=== PATIENT | female | born 1985 | race Caucasian/White ===

== ENCOUNTER 2024-10-30 20:02 | Inpatient (IN) | payer BC, SELFPAY ==
[2024-10-30] VITALS (10 sets, daily range): BP systolic 116–180; BP diastolic 60–114; PULSE 85–110; TEMP 36.7; BMI 33.5
--- NOTE | 2024-10-30 20:25 | PD.LDHP ---
Documentation for date of: 10/30/24 OB Labor/Induct. HPI History of Present Illness History of present illness: H and P dictated. Meds Home Medications and Allergies Home Medications ?Medication ?Instructions ?Recorded ?Confirmed ?Type aspirin 81 mg tablet,delayed mg 10/30/24 History release enoxaparin 40 mg/0.4 mL mg 10/30/24 History subcutaneous syringe labetalol 100 mg tablet mg 10/30/24 History vitamin with calcium tab 10/30/24 History no.72-iron 27 mg-folic acid 1 mg tablet ( Plus (calcium carbonate)) Allergies Allergy/AdvReac Type Severity Reaction Status Date / Time No Known Drug Allergies Allergy Verified 10/30/24 21:03 OB Exam Physical Exam Vital signs: Pulse BP 102 H 162/97 H 10/30/24 20:11 10/30/24 20:11 OB Results Labs 10/30/24 20:15 10/30/24 20:15
[2024-10-30] MEDS: LABETALOL 100 MG TABLET 200 MG PO (21:25)
[2024-10-30] MEDS: DINOPROSTONE 10 MG VAG.SUPP VAGINAL (21:28)
[2024-10-30 21:43] LABS: Basophils % (Auto) 0 % (0-2.5); Eosinophils # (Auto) 0.1 Thou/mm3 (0.0-0.5); Eosinophils % (Auto) 1 % (0-10); Hematocrit 39.2 % (36.0-46.0); Hemoglobin 14.2 g/dL (12.0-16.0); Immature Granulocytes % (Auto) 0 % (0-0); Immature Granulocytes Auto 0.01 Thou/mm3 (0.00-0.00); Lymphocytes # (Auto) 2.1 Thou/mm3 (1.0-4.8); Lymphocytes % (Auto) 32 % (10-50); Mean Corpuscular HGB Conc 36.2 g/dl (31.0-37.0); Mean Corpuscular Hemoglobin 31.4 pg (25.0-35.0); Mean Corpuscular Volume 87 fL (80-100); Monocytes # (Auto) 0.5 Thou/mm3 (0.0-0.8); Monocytes % (Auto) 8 % (0-12); Neutrophils # (Auto) 3.8 Thou/mm3 (1.8-7.7); Neutrophils % (Auto) 58 % (37-80); Nucleated Red Blood Cell % 0 /100 WBC (0); Platelet Count 205 Thou/mm3 (140-440); RDW Standard Deviation 41.6 fL (36.4-46.3); Red Blood Count 4.52 Miln/mm3 (4.00-5.20); White Blood Count 6.5 Thou/mm3 (3.6-11.0)
[2024-10-30 22:14] LABS: Fibrinogen 383 mg/dL (175-375); INR 0.9 (0.9-1.3); Partial Thromboplastin Time 23.2 Seconds (22.0-36.0); Prothrombin Time 10.2 Seconds (9.0-12.2)
[2024-10-30 22:15] LABS: Albumin/Globulin Ratio 1.7 (1.2-2.2); Alkaline Phosphatase 130 U/L (46-116); Anion Gap 11 (7-16); Aspartate Amino Transferase 15 U/L (0-34); BUN/Creatinine Ratio 10 Ratio (12-20); Bilirubin,Total 0.5 mg/dL (0.3-1.2); Blood Urea Nitrogen 9 mg/dL (9-23); Carbon Dioxide 21.6 mMol/L (20.0-31.0); Chloride 106 mMol/L (98-107); Creatinine (Component) 0.9 mg/dL (0.6-1.3); Estimated Creatinine Clearance 104.9 mL/min (>60); Globulin 2.3 gm/dL (2.3-3.5); Glucose 96 mg/dL (74-106); LDH (Lactate Dehydrogenase) 200 U/L (120-246); Osmolality,Calculated 276 (275-295); Sodium 139 mMol/L (136-145); Total Protein 6.3 gm/dL (5.7-8.2); Uric Acid 4.7 mg/dL (3.1-7.8); eGFR > 60 See Note
[2024-10-30 22:18] LABS: Alanine Aminotransferase 10 U/L (10-49)
[2024-10-30] MEDS: RINGERS LACTATED 1000 ML 1,000 ML 100 ML IV (23:23)
[2024-10-31] VITALS (23 sets, daily range): BP systolic 109–174; BP diastolic 61–102; PULSE 70–110; RESP 16–18; TEMP 36.7–37.1
[2024-10-31 02:28] LABS: Collection Type, Urine Clean Catch
[2024-10-31 02:58] LABS: Bilirubin,Urine Negative (Negative); Blood,Urine 2+ (Negative); Clarity,Urine Clear (Clear/Hazy); Color,Urine Lt-Yellow (Lt Yel-Yel); Glucose, Urine Negative (Negative); Ketones,Urine Negative (Negative); Leukocyte Esterase,Urine Negative (Negative); Nitrite,Urine Negative (Negative); Protein,Urine Negative (Neg - Trace); RBC,Urine 2 /hpf (0-3); Specific Gravity,Urine 1.013 (1.001-1.035); Squamous Epithelial Cell,Urine 1 /hpf (0-5); Urobilinogen,Urine Negative mg/dL (0.0-1.0); WBC,Urine < 1 /hpf (0-5)
--- NOTE | 2024-10-31 07:13 | PD.LDPN ---
Documentation for date of: 10/31/24 OB Labor Progress Note Pain Control Comments: Denies any pain Pelvic Exam Dilation (cm): .5 Effacement (%): 0 station: -2 Amniotic membrane status: Intact Comments: Per RN exam Contractions Monitor mode: External Contraction frequency: None Contraction intensity: Mild Status status: Category l Assessment and Plan Comments: IUP 38wks Chronic HTN Macrosomia with EFW 3734g by MFM on 10/29 (prior 8'10 ) IVF pregancy Annexin A5 M2 Haplotype at risk for loss (Stopped Lovenox 10/29: WILLEM says no risk for VTE so she does not need to take ) Cervical ripening with Cervidil Continue Labetalol 200mg po bid PIH labs do not show preeclampsia.
[2024-10-31] MEDS: LABETALOL 100 MG TABLET 200 MG PO (09:07)
[2024-10-31] MEDS: MISOPROSTOL 50 mCg TABLET PO ×4 (11:16→23:57)
[2024-10-31] MEDS: LABETALOL 100 MG TABLET 400 MG PO (21:51)
--- NOTE | 2024-10-31 21:56 | PC.NURSE ---
Pt refusing to take 400mg of Labetalol pt only willing to take 200mg. 200mg of Labetalol given.
[2024-11-01] VITALS (20 sets, daily range): BP systolic 116–143; BP diastolic 62–95; PULSE 66–92; TEMP 36.6–36.7
[2024-11-01 00:49] LABS: Syphilis Nonreactive (Nonreactive)
[2024-11-01] MEDS: LABETALOL 100 MG TABLET 400 MG PO ×2 (08:30→23:08)
--- NOTE | 2024-11-01 08:52 | ESPR_ITS ---
Documentation for date of: 11/01/24 OB Labor Progress Note Pelvic Exam Dilation (cm): 1 Effacement (%): 50 station: -2 Amniotic membrane status: Intact Contractions Monitor mode: External Contraction frequency: None Contraction intensity: Mild Status status: Category l Assessment and Plan Comments: Taken over care from overnight on-call physician. Patient is induction of labor history of IVF . She is status post Cervidil and 1 round of misoprostol and a second round of misoprostol was started earlier this morning. Cervical exam is still 50 and - 3. Category 1 tracing. Continue current plan
[2024-11-01] MEDS: MISOPROSTOL 50 mCg TABLET PO ×3 (11:20→19:48)
[2024-11-02] VITALS (259 sets, daily range): BP systolic 113–173; BP diastolic 62–98; PULSE 59–117; RESP 18; TEMP 36.6–37.2; O2SAT 81–100
[2024-11-02] MEDS: MISOPROSTOL 50 mCg TABLET PO (00:08)
[2024-11-02] MEDS: RINGERS LACTATED 1000 ML 1,000 ML 100 ML IV ×4 (04:53→16:07)
[2024-11-02] MEDS: OXYTOCIN in NS 30 units 30 UNIT/500 ML BAG IV (05:21)
--- NOTE | 2024-11-02 07:34 | ESHP_ITS ---
RE: CAPRI KHAN : 1985 DATE OF ADMISSION: 10/30/2024 HISTORY OF PRESENT ILLNESS: This is a 38-year-old 2, para 1-0-0-1 with due date of 11/12 with intrauterine at 38 weeks and 2 days who presents to labor and delivery for induction of labor for chronic hypertension for which the patient takes labetalol 100 mg p.o. b.i.d. 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 The patient conceived by assisted reproductive technology. She underwent a embryo transfer on 02/25 with embryo age on day of transfer 6 days. The patient has been on Lovenox 40 mg subcutaneous daily and aspirin 81 mg daily per the recommendation of her WILLEM, Dr. Lim in [place]. She has had a recent evaluation to rule out preeclampsia for elevated blood pressures on 10/27. Her 24-hour urine collection showed 166 mg over 24 hours with normal PIH labs. Her most recent ultrasound with maternal medicine on 10/29 showed a right hydronephrosis of 8 mm with no other structural abnormalities noted. The patient reports occasional contractions. She denies any leaking or bleeding. She reports normal movement. ALLERGIES: NO KNOWN DRUG ALLERGIES. MEDICATIONS: 1. Labetalol 100 mg one p.o. b.i.d. 2. Lovenox 40 mg subcutaneous once a day, discontinued on 10/29. 3. Aspirin 81 mg one p.o. daily. PAST MEDICAL HISTORY: Chronic hypertension, advanced maternal age, IVF , Rh negative, BMI 33. FAMILY HISTORY: Hypertension. SOCIAL HISTORY: The patient denies any alcohol, drug use, or smoking. 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 OBSTETRIC HISTORY: 2018 , 40-week normal vaginal delivery, 8 pound 10 ounce female. Intrauterine insemination, epidural. REVIEW OF SYSTEMS: She denies any chest pain, palpitations, cough, fever, shortness of breath, or lower extremity pain. She denies any headache, change in vision, or right upper quadrant pain. PHYSICAL EXAMINATION: Vital Signs: Blood pressure is 147/90 mmHg, heart rate 88, respirations 18, temperature 98.6, weight 219 pounds. HEENT: Oropharynx and sclerae are clear. LUNGS: Clear to auscultation bilaterally. HEART: Regular rate and rhythm. ABDOMEN: Gravid, consistent with estimated weight 8 pounds 4 ounces. EXTREMITIES: Nontender. SKIN: No gross rashes or lesions. NEUROLOGIC: No focal deficits. ASSESSMENT AND PLAN: Intrauterine at 38 weeks and 2 days, chronic hypertension, IVF , ANXA5 M2 haplotype heterozygous increases risk for loss, macrosomia, pyelectasis, induction of labor, anticipate spontaneous vaginal delivery. Informed consent was obtained. The patient has been aware of the risks, complications, alternatives, and benefits of the proposed procedure and she agrees. She is aware of the risk of operative vaginal delivery and delivery and agrees with these modes of delivery if indicated. WILLEM indicates that the patient is not at risk for VTE based on the M2 gene mutation and therefore she does not need Lovenox or aspirin . DT: 08:45:10 TT: 09:27:00 Ref: [id number] - TID: [id number] [facility]
--- NOTE | 2024-11-02 07:58 | PD.LDPN ---
Documentation for date of: 11/02/24 OB Labor Progress Note Pain Control Pain control: tolerating well Comments: Patient is a 38-year-old she [id number] IVF patient admitted for induction of labor secondary to IVF and chronic hypertension. She states she was on labetalol 100 twice daily at home. She has already had Cervidil and Cytotec x 3. She has been here since Friday night. It is now Friday morning. Today on exam , the patient is 2 to 3 cm 70% -2 I AROMed her bag of water at 7:30 in the morning clear fluid was noted. IUPC was inserted. We will continue Pitocin augmentation. As of right now she is on 2 milliunits of Pitocin. The father of the baby is at bedside. Patient does desire epidural. She was on Lovenox until about 5 days ago. Pelvic Exam Dilation (cm): 2-3 Effacement (%): 70 station: -2 Amniotic membrane status: Intact Comments: AROM at 0730 clear fluid Contractions Monitor mode: Internal Contraction frequency: irregular Contraction intensity: Mild Status status: Category l Assessment and Plan Assessment: induction ongoing Plan OB labor note: continuous present management Comments: Continue to go up on Pitocin 2 milliunits every 30 minutes
[2024-11-02] MEDS: LABETALOL 100 MG TABLET 400 MG PO ×2 (11:15→22:42)
--- NOTE | 2024-11-02 23:15 | PD.LDPN ---
Documentation for date of: 11/02/24 OB Labor Progress Note Pain Control Pain control: epidural Comments: Patient states her epidural is one-sided Pelvic Exam Dilation (cm): 4 Effacement (%): 70 station: -2 Amniotic membrane status: Ruptured Comments: Patient was on 15 milliunits/min of Pitocin Contractions Monitor mode: Internal Contraction frequency: 2-3 Contraction intensity: Moderate Status status: Category l Assessment and Plan Pitocin rate (mU/min): 15 Assessment: induction ongoing Plan OB labor note: Comments: Patient declines any more labor. She has made very little cervical change by my exam over the last 4 hours. She has a history of vaginal delivery x one 7 years ago. She is consented for primary low-transverse section The patient understands the risk of including the risk of bleeding, infection, blood transfusion, damage to bowel, bladder, blood vessels, other organs. She understands the risk of prolonged hospital stay should any the above occur. All questions were answered all consents were signed.
[2024-11-02] MEDS: FAMOTIDINE INJ 10 MG/ML VIAL 2 ML 20 MG IV (23:30)
[2024-11-02] MEDS: CITRIC ACID/SODIUM CITR 15 ML UDC (BICITRA) 30 ML PO (23:30)
[2024-11-02] MEDS: ceFAZolin/D5W 2 GM IV 2 GM/100 ML BAG IV (23:30)
[2024-11-03] VITALS (22 sets, daily range): BP systolic 110–154; BP diastolic 66–90; PULSE 77–103; RESP 1–20; TEMP 36.6–37.7; O2SAT 96–100
--- NOTE | 2024-11-03 01:03 | PD.LDDELS ---
Data (Ríos) Data Hx Section: No Reason for Primary Section: Arrest of dilation : 8 Para: 1 Term: 1 Livin Abortions: Spontaneous & Theraputic: 6 Delivery Data (Ríos) Labor Data Initiation of labor: Induction Induction/Augmentation Agent: Cytotec-PO, Cervidil, Pitocin and Artificial ROM ROM date: 11/02/24 ROM time: 07:40 Amniotic membrane rupture type: Artificial Amniotic fluid description: Clear Delivery Data EDC: 11/12/24 Onset of labor date: 11/02/24 Onset of labor time: 16:00 [place] delivery date: 11/03/24 [place] delivery time: 00:08 Gestational age (weeks): 38 Gestational age (days): 4 Placenta delivery date: 11/03/24 Placenta delivery time: 00:09 Delivered by: Tyra Adkins ([facility]) Delivery nurse: flex Multani nurse: sadie Mold Forms Builder at delivery: No Support person(s) at delivery: FOB at bedside Delivery Method Delivery method: Low Transverse Presentation: Vertex position: OA Anesthesia Type Anesthesia Type: Epidural Placenta Placenta delivery description: Manual Removal Cord blood sent to lab: Yes cord blood collection: Cord Blood Type Episiotomy Episiotomy description: None EBL Estimated blood loss (ml): 500 Umbilical Cord cord description: 3 Vessels Additional Procedures See op report for details Complications Complications: None [place] Data (Ríos) [place] Data order: 1 [place]'s gender: Female Identification band number: [id number] weight (gms): 3140 g Weight (pounds): 6 lbs and 14.8 ozs [place] length: 49.53 cm 1 minute: 9 5 minutes: 9
--- NOTE | 2024-11-03 01:09 | ESOP_ITS ---
Operative Note - EQUIPMENT CLEANER Procedure Date of procedure: 11/03/24 Procedure Performed: Primary low-transverse section Indication: The patient is a 38-year-old -0-6-1 history of multiple miscarriages in the past. She had 1 vaginal delivery 7 years prior. This was an IVF . care is up-to-date in the chart with Dr Diaz. She was admitted a couple of days ago for an induction of labor secondary to chronic hypertension and IVF. I took over care 11/02/2024 at 7 in the morning. The patient was 2 cm dilated. I AROMed the patient and placed an intrauterine pressure catheter. The patient had Pitocin augmentation begun. Despite adequate uterine contractions, the patient failed to make progress from 3 to 4 cm for about 5 hours. She declined further attempts at labor. As she was not progressing and declining further augmentation she was consented for a primary low-transverse section. Pre-Op diagnosis: 1. Intrauterine at 38-4/7 weeks 2. IVF 3. AMA 4. Chronic hypertension on labetalol 5. Maternal BMI 34 6. Arrest of dilation Post-Op diagnosis: Same Anesthesia type: Epidural Procedure description: After obtaining informed consent, the patient was brought back to the operating room and her epidural was bolused to obtain excellent anesthesia. She was then prepped and draped in the dorsal supine position with a leftward tilt in a normal sterile fashion. A Bear catheter had been inserted to the patient's bladder. A Pfannenstiel skin incision was made with the scalpel and carried down to the underlying fascia. The fascia was incised in the midline and the fascial incision extended laterally using Campos scissors. The superior aspect of the fascia was grasped with Adriel clamps and the underlying rectus muscles dissected off using blunt and sharp dissection. This was repeated in the inferior aspect of the incision. The rectus muscles were the midline and the peritoneum was picked up and entered sharply with Metzenbaums. This was extended superiorly and inferiorly with good visualization of the bladder. The bladder blade was inserted and the uterus was incised in low transverse fashion using a scalpel above the bladder reflection. The uterine incision was extended laterally using blunt dissection with the surgeon's fingers. The bag of henning was ruptured, and clear fluid was noted. The bladder blade was removed and the was delivered atraumatically in a vertex presentation. The cord was clamped cut, and the was handed off the waiting pediatric staff. Cord blood was sent. Cord gases were held. The placenta was then manually removed, and the uterus was exteriorized and cleared of all clots and debris. The uterine incision was repaired using 0 Monocryl in a running locked fashion. Excellent hemostasis was noted. The uterus was returned to the patient's abdominal cavity and copious irrigation carried out with warm normal saline. The uterine incision was reexamined and noted to be hemostatic. After ensuring the rectus muscles were hemostatic, these were reapproximated in the midline using a running suture of 0 Monocryl. The fascia was closed with 0 Vicryl in a running fashion. The subcutaneous tissues were irrigated and found to be hemostatic. These were reapproximated using a running suture of 3-0 plain. The skin was closed with a subcuticular suture of 4-0 Monocryl. The patient tolerated the procedure well. Sponge, lap, instrument, and needle counts were correct x 2. The patient went to the recovery area awake and in stable condition. Pathology was none. Fluids: crystalloid Fluid amount (mL): 800 Urine output (mL): 200 Specimen: none Implants: none Estimated blood loss (ml): 500 Findings: Liveborn female in the RICH presentation with a loose nuchal cord x 1 no meconium. Apgars were 9 and 9. Weight was 6 pounds 15 ounces. The placenta was complete spontaneous and grossly normal. Uterus was thick-walled otherwise grossly normal. Ovaries appeared flattened and small. Fallopian tubes were grossly normal. Complications: none Surgical staff psychologist Sherri Rubalcava CRNA Operation Date: 11/02/24 23:45 <No data on this case meets the specified criteria> Diagnosis Discharge Diagnosis (1) conceived through in vitro fertilization: Status: Acute (2) Chronic hypertension affecting : Status: Acute (3) Term delivered: Status: Acute Problem List Completed Was Problem List Reviewed/Reconciled?: Yes (1) conceived through in vitro fertilization Qualifiers: Trimester: third trimester Qualified Code(s): O09.813 - Supervision of resulting from assisted reproductive technology, third trimester
[2024-11-03] MEDS: OXYTOCIN in NS 20 units 20 UNIT/1,000 ML BAG 125 UNIT IV ×2 (01:51→10:12)
[2024-11-03 05:40] LABS: Anion Gap 12 (7-16); BUN/Creatinine Ratio 12 Ratio (12-20); Blood Urea Nitrogen 7 mg/dL (9-23); Calcium 8.9 mg/dL (8.3-10.6); Carbon Dioxide 20.6 mMol/L (20.0-31.0); Chloride 102 mMol/L (98-107); Creatinine (Component) 0.6 mg/dL (0.6-1.3); Estimated Creatinine Clearance 157.3 mL/min (>60); Glucose 98 mg/dL (74-106); Osmolality,Calculated 268 (275-295); Potassium 3.8 mMol/L (3.4-5.1); Sodium 135 mMol/L (136-145); eGFR > 60 See Note
[2024-11-03] MEDS: KETOROLAC INJ 30 MG/ML VIAL IVP ×4 (06:40→23:45)
[2024-11-03] MEDS: LABETALOL 100 MG TABLET 400 MG PO (09:18)
--- NOTE | 2024-11-03 19:57 | PD.LDPPPRG ---
Subjective Subjective Interval history: Patient is postop day 0 status post primary for arrest of dilatation at 4 cm. She is up out of bed sitting in a chair. Her 7-year-old daughter and her and the baby are at bedside. Patient is doing well. She had some elevated blood pressures prior to delivery. Exam Vital Signs Temp Pulse Resp BP Pulse Ox O2 Del Method 98.7 F 83 18 129/77 97 Room Air 11/03/24 19:20 11/03/24 19:20 11/03/24 19:20 11/03/24 19:20 11/03/24 19:20 11/03/24 19:20 Narrative Exam Patient is alert and oriented x 3 fundus is firm dressing is clean dry and intact. Objective Labs 10/30/24 20:15 11/03/24 04:45 Labs: Laboratory Results - last 24 hr 11/03/24 11/03/24 04:45 07:10 Sodium 135 L Potassium 3.8 Chloride 102 Carbon Dioxide 20.6 Anion Gap 12 BUN 7 L Creatinine 0.6 Estim Creat Clear Calc 157.3 eGFR > 60 BUN/Creatinine Ratio 12 Glucose 98 Calculated Osmolality 268 L Calcium 8.9 Blood Type A Negative Rho(D) IG Studies Ready Antibody Screen NEGATIVE Maternal Bleed Negative Blood Bank Wristband ID Yes Assessment & Plan Problem List (1) conceived through in vitro fertilization: Status: Acute (2) Chronic hypertension affecting : Problem details: Labetalol 200 twice daily if needed Status: Acute (3) Term delivered: Problem details: Routine post orders Status: Acute Time Spent With Patient Time: Total time spent is greater than 50% in coordination of care (as documented) at patient's floor/unit and/or counseling patient:
[2024-11-04] VITALS: BP 121/71; PULSE 87; RESP 18; TEMP 36.3; O2SAT 97
[2024-11-04 04:10] VITALS: BP 117/74; PULSE 86; RESP 18; TEMP 36.6; O2SAT 97
[2024-11-04] MEDS: KETOROLAC INJ 30 MG/ML VIAL IVP (06:10)
[2024-11-04 06:21] LABS: Basophils % (Auto) 0 % (0-2.5); Eosinophils # (Auto) 0.2 Thou/mm3 (0.0-0.5); Eosinophils % (Auto) 2 % (0-10); Hematocrit 32.2 % (36.0-46.0); Hemoglobin 10.9 g/dL (12.0-16.0); Immature Granulocytes % (Auto) 0 % (0-0); Immature Granulocytes Auto 0.03 Thou/mm3 (0.00-0.00); Lymphocytes # (Auto) 1.9 Thou/mm3 (1.0-4.8); Lymphocytes % (Auto) 16 % (10-50); Mean Corpuscular HGB Conc 33.9 g/dl (31.0-37.0); Mean Corpuscular Hemoglobin 31.3 pg (25.0-35.0); Mean Corpuscular Volume 93 fL (80-100); Monocytes # (Auto) 0.8 Thou/mm3 (0.0-0.8); Monocytes % (Auto) 7 % (0-12); Neutrophils # (Auto) 8.5 Thou/mm3 (1.8-7.7); Neutrophils % (Auto) 74 % (37-80); Nucleated Red Blood Cell % 0 /100 WBC (0); Platelet Count 151 Thou/mm3 (140-440); RDW Standard Deviation 45.3 fL (36.4-46.3); Red Blood Count 3.48 Miln/mm3 (4.00-5.20); White Blood Count 11.5 Thou/mm3 (3.6-11.0)
--- NOTE | 2024-11-04 08:10 | PD.LDPPPRG ---
Subjective Subjective Interval history: Delivery type: Patient doing well this morning. No acute complaints. Ambulating, tolerating p.o. and voiding without difficulty. HTN/Pre-Eclampsia screen: No chest pain, shortness of breath, headache, visual changes, epigastric or right upper quadrant pain. Breast-feeding, lochia diminishing. Bowel: Flatus+/ BM+ Exam Vital Signs Temp Pulse Resp BP Pulse Ox O2 Del Method 97.8 F 86 18 117/74 97 Room Air 11/04/24 04:10 11/04/24 04:10 11/04/24 04:10 11/04/24 04:10 11/04/24 04:10 11/04/24 04:10 Constitutional Constitutional: no acute distress Routine HEENT Exam Head: Present normocephalic and atraumatic Eye: Present EOMI and PERRL ENT: Present mucous membranes moist Routine Neck Exam Neck: Present supple and trachea midline Routine Respiratory Exam Respiratory: Present chest non-tender, lungs clear, normal breath sounds and no resp distress Routine Cardiovascular Exam Cardiovascular: Present RRR Routine Abdominal Exam Abdominal: Present soft and normoactive bowel sounds Routine Extremities Exam Extremities: Present full ROM Routine Skin Exam Skin: Present intact, dry and warm Routine Neurological Exam Neurological: Present alert, oriented X3 and CN II-XII intact Routine Psychiatric Exam Psychiatric: Present normal affect and normal thought process Objective Labs 11/04/24 05:45 11/03/24 04:45 Labs: Laboratory Results - last 24 hr 11/03/24 11/04/24 07:10 05:45 WBC 11.5 H D RBC 3.48 L Hgb 10.9 L D Hct 32.2 L MCV 93 MCH 31.3 MCHC 33.9 RDW Std Deviation 45.3 Plt Count 151 D Neut % (Auto) 74 Lymph % (Auto) 16 Angelina % (Auto) 7 Eos % (Auto) 2 Baso % (Auto) 0 Neut # (Auto) 8.5 H Lymph # (Auto) 1.9 Angelina # (Auto) 0.8 Eos # (Auto) 0.2 Baso # (Auto) 0.0 Immature Gran # (Auto) 0.03 H Absolute Nucleated RBC 0.00 Immature Gran % 0 Nucleated RBC % 0 Blood Type A Negative Rho(D) IG Studies Ready Antibody Screen NEGATIVE Maternal Bleed Negative Blood Bank Wristband ID Yes Assessment & Plan Problem List (1) conceived through in vitro fertilization: Status: Acute (2) Chronic hypertension affecting : Status: Acute (3) Term delivered: Status: Acute (4) delivery delivered: Status: Acute Assessment and plan: 1. Continue routine /post-op care 2. Labs reviewed, cbc appropriate 3. Remove dressing/Bear 4. Encourage to ambulate, shower 5. Encourage PO intake, breast feeding Time Spent With Patient Time: Total time spent is greater than 50% in coordination of care (as documented) at patient's floor/unit and/or counseling patient:
[2024-11-04 08:57] VITALS: BP 153/88; PULSE 98
[2024-11-04] MEDS: LABETALOL 100 MG TABLET 400 MG PO (08:57)
[2024-11-04 09:00] VITALS: BP 153/88; PULSE 98; RESP 18; TEMP 36.8; O2SAT 96
[2024-11-04 13:21] VITALS: BP 131/79; PULSE 77; RESP 16; TEMP 36.9
--- NOTE | 2024-11-04 13:24 | ESDS_ITS ---
DS: Providers Provider Date of admission: 10/30/24 20:02 Primary care physician: Physician No Primary/Family Admitting Provider: Jordan Diaz MD Attending Provider on Admission: Armando Burnham MD Consults: 11/03/24 01:06 Referral Routine Comment: Attending Provider on DC: Armando Burnham MD Discharging Provider: Armando Burnham MD DS: Diagnosis Discharge Diagnosis (1) delivery delivered: Status: Acute (2) Term delivered: Status: Acute (3) conceived through in vitro fertilization: Status: Acute (4) Chronic hypertension affecting : Status: Acute Problem List Completed Was Problem List Reviewed/Reconciled?: Yes Summary/Hosp Course Brief History: H and P dictated. Peripartum Data Delivery Method: Low Transverse Episiotomy Description: None Procedures: Procedures Operation Date: 11/02/24 23:45 Actual Procedure Side Surgeon p in OB Bilateral Tyra Adkins ([facility])MD Time Spent with Patient Time attestation: Total time spent providing and/or coordinating discharge services: Exam Vital Signs Temp Pulse Resp BP Pulse Ox O2 Del Method 98.5 F 77 16 131/79 H 96 Room Air 11/04/24 13:21 11/04/24 13:21 11/04/24 13:21 11/04/24 13:21 11/04/24 09:00 11/04/24 13:21 Discharge Plan Plan Patient Disposition: HOME (Self Care) Patient condition on transfer: Stable Prescriptions/Referrals Prescriptions/Med Rec: New labetalol 400 mg tablet 400 mg PO BID 30 Days Qty: 60 2RF hydrocodone-acetaminophen 5-325 mg tablet 1 tab PO Q6H MDD 4 PRN (Reason: pain) 7 Days Qty: 28 0RF docusate sodium [Stool Softener] 100 mg capsule 100 mg PO QDAY 30 Days Qty: 30 0RF ibuprofen 600 mg tablet 600 mg PO Q6H MDD 4 PRN (Reason: fever or pain) 10 Days Qty: 40 0RF Discontinued aspirin 81 mg tablet,delayed release (DR/EC) Patient Comments: TAKE 1 TABLET BY MOUTH DAILY enoxaparin 40 mg/0.4 mL syringe Patient Comments: ADMINISTER 1 SYRINGE UNDER THE SKIN DAILY labetalol 100 mg tablet Patient Comments: TAKE 1 TABLET BY MOUTH TWICE DAILY Plus (calcium carb) 27 mg iron- 1 mg tablet Patient Comments: Take 1 tablet by mouth once a day Referrals: Jordan Diaz MD [Physician] - No Primary/Family,Physician [Primary Care Provider] - Patient/Caregiver Discharge Instructions Education Materials: After Delivery [place] Concerns, Breast Care After , After a , Nutrition While , Understanding Depression, : Caring for Yourself, C Section Dc, Feel Healthy After, Gestational Hypertension Print Language: Malay Stand Alone Forms: Julianna Award Info., Patient Portal Info Letter, DC from Surgery Discharge Order Discharge Orders: Discharge (Routine); Ordered 11/04/24 Ordered By: Armando Burnham Planned Discharge Date 11/04/24 (3) conceived through in vitro fertilization Qualifiers: Trimester: third trimester Qualified Code(s): O09.813 - Supervision of resulting from assisted reproductive technology, third trimester
== END 2024-11-04 15:00 | disposition home or self-care (01) | DRG 788 ==
LOC: S4SX 11-02 23:11 → S4NX 11-02 23:50
PROVIDERS: Obstetrics & Gynecology; Admitting Provider Specialist; Visit Provider Obstetrics & Gynecology
PROC: (CPT 59514; principal; 2024-11-02 23:30)
DX: O16.4 Unspecified maternal hypertension, complicating childbirth (principal); O69.81X0 Labor and delivery complicated by cord around neck, without compression, not applicable or unspecified; O62.0 Primary inadequate contractions; Z37.0 Single live birth; Z3A.38 38 weeks gestation of pregnancy; O26.23 Pregnancy care for patient with recurrent pregnancy loss, third trimester; Z79.899 Other long term (current) drug therapy; Z79.82 Long term (current) use of aspirin
CPT/HCPCS: 36415; 80048; 80053; 81001; 83615; 84550; 85025; 85384; 85461; 85610; 85730; 86780; 86850; 86900; 86901; A4649; J0689; J1885; J2590; J2790; J3490; J7120; A9270

== ENCOUNTER 2024-11-08 13:45 | Outpatient (AMBR) | payer BC, SELFPAY ==
--- NOTE | 2024-11-08 16:31 | LACNOTE_ITS ---
Assessment LAC OP History History Hx of Breast Feeding Problems: Yes History Comment: mom stated that first baby had tongue tie but they did not find out till it was too late, her milk supply was compromised as well as having major nipple tissue break down. LAC Breast Assessment Breast Assessment Bilateral: Breast Assessment Comment: mom has large, pendulous breast, with medium sized nipples. LAC Pain Pain Bilateral Nipple: Pain Intensity: Mild (1-3) Character of Pain: Burning and Sharp Pain Comment: mom has tissue break down around the nipple on the left side, the right side is read and sore but no bleeding Alternative Milk Expression Alternative Milk Expression Alternative Method Used: Yes Method Used: Pumping Alternative Method Used Reason: Poor Feeding and Sore Nipples Alternative Method Produced Milk / Colostrum: Yes Production Amount: 2 Production ounces or mls: ounces Pump Used: Electric Pumping Frequency Per Day: 8 LAC Assessment Breast Feeding Assessment Date of : 11/03/24 Current Age of baby: 6 (days) Weight: 2789.593 g Current weight of baby: 3265.865 g Breast Feeding Ability: Fair G[place]ay Complications: Difficult Latch [place] Complications Comment: baby has tongue and lip tie making feeds at the breast difficult. baby tires out quickly and bottles have been used to supplement Galloway Activity Level: Sleepy Muscle Tone: Tense [place] Suck Quality: Areolar Compression and Tongue Retracts Effective [place]alloway Suck: Yes Swallow: Audible [place] Jaw: Clentched [place] Lip Seal: Poor, Weak Suction, Chomping and Tight Lips Feeding Posistion: Football Additional Latch or Posistion Assistance Needed: Minimal Breast Feeding Comment: baby does well with the help of nipple shield and SNS Pre Weight (before feeding): 3265.865 g Post Weight (post feeding): 3297.617 g % gained or lost: 1% Gain LAC Intervention Interventions Tools: Nipple Shield and Aid Other Tools: Supplemental Nursing System Nipple Shield Size: Medium Techniques Discussed: Pumping Discharge Follow Up Appointment Date and Time: 11-15-24 LAC Latch Score LATCH Score Latch: Repeat Attempt to Hold Nipple Audible Swallow: Spontaneous, Intermittent, Frequent Nipple Type: Everted After Stimulation Comfort: Red, Small Blisters, Bruises Hold: Minimal Assistance Needed Total Score: 7 LAC Oral Assessment Galloway Oral Assessment Prenulum Level: Posterior Palate: High Dental Referral made: Yes OP DC Assessment Discharge Follow Up Appointment Date and Time: 11-15-24 Visit Complete?: Yes
== END 2024-12-06 23:59 | disposition home or self-care (01) ==
LOC: HODLAC 13:45
DX: Z39.1 Encounter for care and examination of lactating mother (principal)

== ENCOUNTER 2024-11-15 13:57 | Outpatient (AMBR) | payer BC, SELFPAY ==
--- NOTE | 2024-11-15 15:49 | LAC.VISIT ---
Assessment Alternative Milk Expression Alternative Milk Expression Alternative Method Used: Yes Method Used: Pumping Alternative Method Comment: mom pumping to supplement as baby is still not doing a great job at the breast. baby gets tired or fussy at the breast even with the use of the nipple shield. which mom staates is the only way to keep baby on for a feed at this time. Alternative Method Used Reason: Poor Feeding and Sore Nipples Alternative Method Produced Milk / Colostrum: Yes Production Amount: 3 Production ounces or mls: ounces Pump Used: Electric Pumping Frequency Per Day: 10 Pumping Frequency Comment: mom states she pumps about every 2- 4 hours and at night at least 3 times. 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 Frias office tomorrow Activity Level: Sleepy LAC Intervention Interventions Tools: Nipple Shield, Pump and Aid Other Tools: Supplemental Nursing System Nipple Shield Size: Medium Techniques Discussed: Latch and Position Intervention Comments: mom doing well with the assisted devices. 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
== END 2024-12-06 23:59 | disposition home or self-care (01) ==
LOC: HODLAC 13:57
DX: Z39.1 Encounter for care and examination of lactating mother (principal)

== ENCOUNTER 2024-11-16 13:56 | Outpatient (AMBR) | payer BC, SELFPAY ==
--- NOTE | 2024-11-16 14:59 | LACNOTE_ITS ---
Assessment LAC OP History History History Comment: mom stated that with her first baby she pumped exclusively due to tongue tie. 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 baby very sleepy and not cooperative in trying to breast feed. baby did better on nipple shield and transfer was very significant. she did latch with out shield but was very upset she did not do more than latch. [place] Activity Level: Crying [place] Muscle Tone: Tense Effective Suck: Yes Swallow: Audible Jaw: With In Norml Limits Lip Seal: Good and Excess Suction Feeding Posistion: Football Additional Latch or Posistion Assistance Needed: Minimal Breast Feeding Comment: baby cried so much, she was un consolable, but felt this was due to painful mouth. parents administered some baby tylenol and baby calmed a little. we were able to latch baby with nipple shield. babys post weight there was an increase Pre Weight (before feeding): 3238.65 g Post Weight (post feeding): 3674.098 g % gained or lost: 13% Gain LAC Intervention Interventions Other Tools: still using nipple shield and pumping for supplementation when needed. will no longer need to be using SNS. Nipple Shield Size: Medium Techniques Discussed: Latch and Position Discharge Follow Up Appointment Date and Time: November 29, 2024 LAC Latch Score LATCH Score Latch: Repeat Attempt to Hold Nipple Audible Swallow: Spontaneous, Intermittent, Frequent Nipple Type: Everted After Stimulation Comfort: Soft, Nontender Hold: Minimal Assistance Needed Total Score: 8 OP DC Assessment Discharge Follow Up Appointment Date and Time: November 29, 2024 Visit Complete?: Yes
== END 2024-12-06 23:59 | disposition home or self-care (01) ==
LOC: HODLAC 13:56
DX: Z39.1 Encounter for care and examination of lactating mother (principal)

== ENCOUNTER 2024-11-29 14:14 | Outpatient (AMBR) | payer BC, SELFPAY | END 2024-12-06 23:59 | disposition home or self-care (01) | LOC: HODLAC 14:14 | DX: Z39.1 Encounter for care and examination of lactating mother (principal) ==

== ENCOUNTER → 2025-02-16 | Outpatient (CLI) | payer BC, SELFPAY ==
[2025-02-16 08:00] LABS: Collection Type, Urine Clean Catch
[2025-02-16 08:26] LABS: Bilirubin,Urine Negative (Negative); Blood,Urine Negative (Negative); Clarity,Urine Clear (Clear/Hazy); Color,Urine Colorless (Lt Yel-Yel); Culture Indicated,Urine Not Indicated; Glucose, Urine Negative (Negative); Ketones,Urine Negative (Negative); Leukocyte Esterase,Urine Negative (Negative); Nitrite,Urine Negative (Negative); PH,Urine 6.0 (5.0-7.0); Protein,Urine Negative (Neg - Trace); RBC,Urine < 1 /hpf (0-3); Specific Gravity,Urine 1.012 (1.001-1.035); Squamous Epithelial Cell,Urine 1 /hpf (0-5); Urobilinogen,Urine Negative mg/dL (0.0-1.0); WBC,Urine 1 /hpf (0-5)
[2025-02-16 08:26] LABS: Basophils # (Auto) 0.0 Thou/mm3 (0.0-0.2); Basophils % (Auto) 1 % (0-2.5); Eosinophils # (Auto) 0.1 Thou/mm3 (0.0-0.5); Eosinophils % (Auto) 2 % (0-10); Hematocrit 43.4 % (36.0-46.0); Hemoglobin 14.8 g/dL (12.0-16.0); Immature Granulocytes Auto 0.01 Thou/mm3 (0.00-0.00); Lymphocytes # (Auto) 2.0 Thou/mm3 (1.0-4.8); Lymphocytes % (Auto) 33 % (10-50); Mean Corpuscular HGB Conc 34.1 g/dl (31.0-37.0); Mean Corpuscular Hemoglobin 29.8 pg (25.0-35.0); Mean Corpuscular Volume 88 fL (80-100); Monocytes # (Auto) 0.6 Thou/mm3 (0.0-0.8); Monocytes % (Auto) 10 % (0-12); Neutrophils # (Auto) 3.3 Thou/mm3 (1.8-7.7); Neutrophils % (Auto) 55 % (37-80); Nucleated Red Blood Cell # 0.00 Thou/mm3 (0.00-0.00); Nucleated Red Blood Cell % 0 /100 WBC (0); Platelet Count 246 Thou/mm3 (140-440); RDW Standard Deviation 43.7 fL (36.4-46.3); Red Blood Count 4.96 Miln/mm3 (4.00-5.20); White Blood Count 6.0 Thou/mm3 (3.6-11.0)
[2025-02-16 08:35] LABS: Glucose Estimated Average 100 mg/dL (80-131); Hemoglobin A1C 5.1 % Hgb (4.8-6.0)
[2025-02-16 08:42] LABS: Alanine Aminotransferase 19 U/L (10-49); Albumin, Serum 4.2 gm/dL (3.5-5.0); Albumin/Globulin Ratio 2.1 (1.2-2.2); Alkaline Phosphatase 83 U/L (46-116); Anion Gap 10 (7-16); Aspartate Amino Transferase 16 U/L (0-34); BUN/Creatinine Ratio 13 Ratio (12-20); Bilirubin,Total 0.6 mg/dL (0.3-1.2); Blood Urea Nitrogen 10 mg/dL (9-23); Calcium 9.6 mg/dL (8.3-10.6); Calcium (Corrected) 9.6 mg/dL (8.5-10.1); Carbon Dioxide 26.7 mMol/L (20.0-31.0); Cardiac Risk Estimate 5.0 RATIO (3.7-5.6); Chloride 104 mMol/L (98-107); Cholesterol 270 mg/dL (132-200); Creatinine (Component) 0.8 mg/dL (0.6-1.3); Globulin 2.0 gm/dL (2.3-3.5); Glucose 93 mg/dL (74-106); HDL Cholesterol 54 mg/dL (40-60); LDL Cholesterol,Calculated 193 mg/dL (0-130); Osmolality,Calculated 280 (275-295); Potassium 4.9 mMol/L (3.4-5.1); Sodium 141 mMol/L (136-145); Thyroid Stimulating Hormone 1.24 uIU/mL (0.55-4.78); Total Protein 6.2 gm/dL (5.7-8.2); Triglycerides 114 mg/dL (30-150); eGFR > 60 See Note
[2025-02-16 08:45] LABS: Vitamin D 25 Hydroxy Total 37.9 ng/mL (7.3-40.2)
== END | disposition home or self-care (01) ==
LOC: COPL 07:20
PROVIDERS: PCP Family Medicine; Referring Provider Registered Nurse; Visit Provider Registered Nurse
DX: Z00.00 Encounter for general adult medical examination without abnormal findings (principal)
CPT/HCPCS: 36415; 80053; 80061; 81001; 82306; 83036; 84443; 85025